=== PATIENT | male | born 1965 | race Caucasian/White ===

== ENCOUNTER → 2019-01-14 | Outpatient (CLI) | payer OTHER ==
[2015-01-05 18:20] VITALS: BP 147/89
[~2019-01-14] MED LIST: ACET500T68 PO; AMOX1TAB61 PO; BUPIVACAINE MPF 0.25% 10 ML VIAL. ONE; FLUT1DIS3 IH; HYDR-2765 PO; IBUP800T19 PO; MONT10TA80 PO; OMEP20TA8 PO; TRAM50TA PO; methylPREDNISolone ACETATE 40 MG/ML VIAL. ONE
== END ==
LOC: SURG 10:25
PROVIDERS: ATTEND Anesthesiology Pain Medicine
DX: M79.18 Myalgia, other site (principal); K44.9 Diaphragmatic hernia without obstruction or gangrene; J45.909 Unspecified asthma, uncomplicated; Z87.39 Personal history of other diseases of the musculoskeletal system and connective tissue
CPT/HCPCS: 20553; J1030; J3490

== ENCOUNTER → 2019-03-11 | Outpatient (CLI) | payer OTHER ==
[~2019-03-11] MED LIST changes: +ALBU2.5V14 NEB; +ALBU2.5V8 INH; +ATOR40TA PO; -methylPREDNISolone ACETATE 40 MG/ML VIAL. ONE
[2019-03-11 11:17] VITALS: BP 130/73
== END | disposition home or self-care (01) ==
LOC: SURG 09:50
PROVIDERS: ATTEND Anesthesiology Pain Medicine
DX: M54.2 Cervicalgia (principal); M79.18 Myalgia, other site; G43.909 Migraine, unspecified, not intractable, without status migrainosus; D49.6 Neoplasm of unspecified behavior of brain; G89.4 Chronic pain syndrome; M54.81 Occipital neuralgia; Z72.89 Other problems related to lifestyle; Z87.891 Personal history of nicotine dependence; Z98.890 Other specified postprocedural states; Z82.49 Family history of ischemic heart disease and other diseases of the circulatory system
CPT/HCPCS: 20552; J3490